=== PATIENT | female | born 1985 | race Caucasian/White ===

== ENCOUNTER → 2020-10-16 07:50 | Outpatient (CLI) | payer OTHER, SELFPAY ==
[2020-10-16 08:22] LABS: Alanine Aminotransferase 93 IU/L (<35); Albumin 4.3 g/dL (3.5-5.0); Albumin Globulin Ratio 1.4 (1.0-2.8); Alkaline Phosphatase 96 U/L (38-126); Aspartate Aminotransferase 104 IU/L (14-36); BUN Creatinine Ratio 20.3 (6-22); Bilirubin Total 0.3 mg/dL (0.2-1.3); Blood Urea Nitrogen 13 mg/dL (7-17); Carbon Dioxide 28 mmol/L (22-32); Chloride 106 mmol/L (98-107); Cholesterol 177 mg/dL (140-199); Estimated Glomerular Filt Rate > 60.0 mL/min (>60); Globulin 3.1 g/dL (1.7-4.1); Glucose 92 mg/dL (70-100); HDL Cholesterol 72 mg/dL (40-60); HEMOLYSIS < 15 (0-50); LDL Cholesterol Calculated 94 mg/dL (<100); Sodium 140 mmol/L (137-145); Total Protein 7.4 g/dL (6.3-8.2); Triglycerides 55 mg/dL (35-150)
[2020-10-16 08:37] LABS: Vitamin D 25 Hydroxy (D3) 52.5 ng/mL (30.0-100.0)
== END ==
PROVIDERS: PCP Registered Nurse; Referring Provider Registered Nurse; Visit Provider Registered Nurse
DX: B00.1 Herpesviral vesicular dermatitis (principal); Z79.899 Other long term (current) drug therapy; E55.9 Vitamin D deficiency, unspecified; Z82.49 Family history of ischemic heart disease and other diseases of the circulatory system
CPT/HCPCS: 36415; 80053; 80061; 82306

== ENCOUNTER → 2020-10-28 10:03 | Outpatient (CLI) | payer OTHER, SELFPAY ==
[2020-10-28 11:57] LABS: Alanine Aminotransferase 47 IU/L (<35); Albumin 4.3 g/dL (3.5-5.0); Albumin Globulin Ratio 1.3 (1.0-2.8); Alkaline Phosphatase 83 U/L (38-126); Aspartate Aminotransferase 36 IU/L (14-36); Bilirubin Total 0.5 mg/dL (0.2-1.3); Bilirubin Unconjugated 0.6 mg/dL (0.0-1.1); Globulin 3.3 g/dL (1.7-4.1); HEMOLYSIS < 15 (0-50); Total Protein 7.6 g/dL (6.3-8.2)
[2020-10-29 07:35] LABS: Alpha Fetoprotein 2.2 ng/mL (0.0-8.3)
== END ==
PROVIDERS: PCP Registered Nurse; Referring Provider Registered Nurse; Visit Provider Registered Nurse
DX: R74.8 Abnormal levels of other serum enzymes (principal)
CPT/HCPCS: 36415; 80076; 82105

== ENCOUNTER → 2021-01-21 09:37 | Outpatient (CLI) | payer OTHER, SELFPAY ==
[2021-01-21 10:48] LABS: Add Manual Diff / Slide Review NO; Basophils Absolute Auto 0 /uL (0-100); Basophils Percent Auto 0.6 % (0-2); Eosinophils Absolute Auto 0 /uL (0-450); Hematocrit 38.6 % (36-46); Hemoglobin 13.3 g/dL (12.0-16.0); Lymphocytes Absolute Auto 1200 /uL (1100-4500); Lymphocytes Percent Auto 31.8 % (25-40); Mean Corpuscular HGB Conc 34.6 % (30-36); Mean Corpuscular Volume 95.5 fL (80-100); Monocytes Absolute Auto 400 /uL (0-900); Monocytes Percent Auto 9.5 % (3-14); Neutrophils Absolute Auto 2100 /uL (1500-7000); Neutrophils Percent Auto 57.1 % (50-75); Platelet Count 178 X10^3/uL (150-400); Red Blood Cell Count 4.04 X10^6/uL (4.0-5.2); Red Cell Distribution Width 12.2 % (11.6-14.8); White Blood Cell Count 3.7 X10^3/uL (4.5-11.0)
[2021-01-21 11:30] LABS: Alanine Aminotransferase 29 IU/L (<35); Albumin 4.3 g/dL (3.5-5.0); Albumin Globulin Ratio 1.4 (1.0-2.8); Alkaline Phosphatase 75 U/L (38-126); Aspartate Aminotransferase 36 IU/L (14-36); BUN Creatinine Ratio 22.4 (6-22); Bilirubin Total 0.4 mg/dL (0.2-1.3); Blood Urea Nitrogen 13 mg/dL (7-17); Calcium 9.1 mg/dL (8.4-10.2); Carbon Dioxide 27 mmol/L (22-32); Chloride 105 mmol/L (98-107); Estimated Glomerular Filt Rate > 60.0 mL/min (>60); Glucose 86 mg/dL (70-100); HEMOLYSIS < 15 (0-50); Lipase 89 U/L (23-300); Potassium 4.6 mmol/L (3.4-5.1); Sodium 137 mmol/L (137-145); Total Protein 7.3 g/dL (6.3-8.2)
== END ==
PROVIDERS: PCP Registered Nurse; Referring Provider Registered Nurse; Visit Provider Registered Nurse
DX: R10.9 Unspecified abdominal pain (principal)
CPT/HCPCS: 36415; 80053; 83690; 85025

== ENCOUNTER → 2021-01-22 07:16 | Outpatient (CLI) | payer OTHER, SELFPAY ==
[2021-01-23 13:45] LABS: Interpretation Negative (Negative)
== END ==
PROVIDERS: PCP Registered Nurse; Referring Provider Registered Nurse; Visit Provider Registered Nurse
DX: R10.9 Unspecified abdominal pain (principal)
CPT/HCPCS: 83013

== ENCOUNTER → 2021-01-27 07:11 | Outpatient (CLI) | payer OTHER, SELFPAY ==
--- NOTE | 2021-01-27 07:12 | DI.US.S_ITS ---
PROCEDURE: US ABDOMEN LIMITED INDICATIONS: ELEVATED LIVER ENZYMES TECHNIQUE: Real-time focused scanning was performed of the abdomen, with image documentation. COMPARISON: None. FINDINGS: The liver is normal in size and demonstrates no focal lesions. No findings of gallstones or sludge are seen. The gallbladder wall is not thickened, measuring 3 mm or less. No specific pericholecystic fluid is seen. The sonographic Dai sign is negative. There is no biliary dilatation, the common bile duct measures 3 mm. No significant pancreatic abnormality is seen on these images. IMPRESSION: Normal appearing liver by ultrasound. The gallbladder demonstrates a normal sonographic appearance. No biliary dilatation is seen. Dictated by: Daryn Grande M.D. on 01/29/2021 at 14:15 Approved by: Daryn Grande M.D. on 01/29/2021 at 14:15
== END ==
PROVIDERS: PCP Registered Nurse; Referring Provider Registered Nurse; Visit Provider Registered Nurse
DX: R74.8 Abnormal levels of other serum enzymes (principal); R79.89 Other specified abnormal findings of blood chemistry
CPT/HCPCS: 76705

== ENCOUNTER → 2021-02-26 08:56 | Outpatient (CLI) | payer OTHER, SELFPAY ==
[2021-02-26] MEDS: COVID-19 VACC #2, MRNA(MOD) 100 MCG/0.5 ML VIAL IM (09:02)
== END ==
PROVIDERS: PCP Registered Nurse; Visit Provider Internal Medicine
DX: Z23 Encounter for immunization (principal)
CPT/HCPCS: 0012A; 91301

== ENCOUNTER → 2021-12-08 10:22 | Outpatient (CLI) | payer OTHER, SELFPAY ==
[2021-12-08 11:47] LABS: Alanine Aminotransferase 18 IU/L (<35); Albumin 4.3 g/dL (3.5-5.0); Albumin Globulin Ratio 1.4 (1.0-2.8); Alkaline Phosphatase 59 U/L (38-126); Aspartate Aminotransferase 27 IU/L (14-36); BUN Creatinine Ratio 13.1 (6-22); Bilirubin Total 0.6 mg/dL (0.2-1.3); Blood Urea Nitrogen 8 mg/dL (7-17); Calcium 8.9 mg/dL (8.4-10.2); Carbon Dioxide 27 mmol/L (22-32); Chloride 107 mmol/L (98-107); Estimated Glomerular Filt Rate > 60.0 mL/min (>60); Globulin 3.1 g/dL (1.7-4.1); Glucose 80 mg/dL (70-100); HEMOLYSIS < 15 (0-50); Potassium 3.8 mmol/L (3.4-5.1); Sodium 138 mmol/L (137-145); Total Protein 7.4 g/dL (6.3-8.2)
[2021-12-08 12:19] LABS: Pregnancy Test Urine Negative (Negative)
[2021-12-08 15:49] LABS: Vitamin D 25 Hydroxy (D3) 36.7 ng/mL (30.0-100.0)
== END ==
PROVIDERS: PCP Registered Nurse; Referring Provider Registered Nurse; Visit Provider Registered Nurse
DX: E55.9 Vitamin D deficiency, unspecified (principal); F32.9 Major depressive disorder, single episode, unspecified; F41.9 Anxiety disorder, unspecified; L70.9 Acne, unspecified; Z79.899 Other long term (current) drug therapy; Z30.011 Encounter for initial prescription of contraceptive pills
CPT/HCPCS: 36415; 80053; 81025; 82306

== ENCOUNTER → 2022-07-29 10:44 | Outpatient (CLI) | payer OTHER, SELFPAY ==
--- NOTE | 2022-07-29 10:45 | DI.US.S_ITS ---
PROCEDURE: US PELVIC COMPLETE INDICATIONS: history of ovarian cysts TECHNIQUE: Real-time scanning was performed of the pelvic organs, with image documentation. Additional endovaginal scanning was necessary due to incomplete visualization of the adnexal and endometrial structures by transabdominal scanning. COMPARISON: None. FINDINGS: Uterus: Uterus is anteverted and normal in size at 8 x 3.2 x 4.5 cm. The myometrium is homogeneous. No discrete uterine fibroids. The endometrium measures 4.4 mm combined thickness. No endometrial mass or fluid. Ovaries: The right ovary measures 2.8 x 1.6 x 1.4 cm, with a calculated ovarian volume of 3.2 cc. The left ovary measures 3.3 x 1.8 x 2 cm, with a calculated ovarian volume of 6.3 cc. The ovaries have a normal sonographic appearance. Less than 12 follicles can be seen in each ovary. No adnexal masses are seen. Prominent veins are seen in left adnexa. Other: Physiologic amount of free fluid is seen in lower pelvis. IMPRESSION: 1. Normal appearing uterus and bilateral ovaries. 2. Prominent left ovarian veins which is a nonspecific finding. Physiologic amount of free fluid within lower pelvis. We strive to produce accurate, complete, and clear reports of imaging services. To assist us in improving patient care, this report was composed using standard report templates and voice recognition software. Therefore, it may contain abnormal punctuation, insertions and/or omissions. Occasional wrong-word or sound-alike substitutions may occur. Though we review the report and make efforts to correct it, we do recommend that the report be read carefully in proper context to recognize any text inaccuracies. Dictated by: Khanh Black M.D. on 07/29/2022 at 12:37 Approved by: Khanh Black M.D. on 07/29/2022 at 12:39
== END ==
PROVIDERS: PCP Family Medicine; Referring Provider Family Medicine; Visit Provider Family Medicine
DX: Z87.42 Personal history of other diseases of the female genital tract (principal)
CPT/HCPCS: 76830; 76856